=== PATIENT | male | born 2000 | race African-American/Black ===

== ENCOUNTER 2024-11-19 18:50 | Emergency (ER) | payer SELFPAY ==
--- OUTSIDE RECORDS SUMMARY | 2008-07-28 21:13 | XMS_ITS | Encounter Summary ---
Author Organization [facility] Address [address] [place] [address] Care Team Providers Care Spray Painting Machine Operator Name Role Phone Unavailable Primary Care Provider Unavailabl e Encounter Details Date Type Department Care Team (Late st Contact Info) Description 07/28/2008 9:13 PM EDT Hospital Encounter [facility] ONLY Lemuel Murillo MD [address] [place] [address] Social History Tobacco Use Types Packs/Day Years Used Date Smoking Tobacco: Never Assessed Sex and Gender Information Value Date Recorded Sex Assigned at Not on file Legal Sex Male 1:36 PM EDT Gender Identity Not on file Sexual Orientation Not on file documented as of this encounter Plan of Treatment Not on file documented as of this encounter Visit Diagnoses Not on filedocumented in this encounter
--- OUTSIDE RECORDS SUMMARY | 2008-08-17 15:36 | XMS_ITS | Encounter Summary ---
Author Organization [facility] Address [address] [place] [address] Care Team Providers Care Grading Supervisor Name Role Phone Unavailable Primary Care Provider Unavailabl e Encounter Details Date Type Department Care Team (Late st Contact Info) Description 08/17/2008 3:36 PM EDT Hospital Encounter [facility] ONLY Lemuel Murillo MD [address] [place] [address] Social History Tobacco Use Types Packs/Day Years [...]
--- OUTSIDE RECORDS SUMMARY | 2011-05-08 17:00 | XMS_ITS | Encounter Summary ---
Author Organization [facility] Address [address] [place] [address] Care Team Providers Care Pipe Insulator Helper Name Role Phone Unavailable Primary Care Provider Unavailabl e Encounter Details Date Type Department Care Team (Late st Contact Info) Description 05/08/2011 5:00 PM EDT Hospital Encounter [facility] ONLY Colby Beal MD [address] [place] [phone] Social History Tobacco Use Types Packs/Day Years [...]
--- NOTE | ~2024-11-19 | XR_ITS ---
CLINICAL HISTORY: trauma 2 view chest x-ray Comparison: None provided Findings: The lungs are clear. Normal size heart. No acute fracture. IMPRESSION: 1. No acute findings. This document has been electronically signed by: Cole Liriano MD on 11/19/2024 20:48:11
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
--- NOTE | ~2024-11-19 | XR_ITS ---
CLINICAL HISTORY: trauma 3 view right elbow Comparison: None provided Findings: No acute fractures or dislocations. No significant arthritic change or erosions. No joint effusion. No radiopaque foreign body. IMPRESSION: 1. No acute findings. This document has been electronically signed by: Cole Liriano MD on 11/19/2024 20:48:16
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
--- NOTE | ~2024-11-19 | XR_ITS ---
CLINICAL HISTORY: trauma 3 view right shoulder Comparison: None provided Findings: No fractures or dislocations. No significant arthritic change. No erosions. No radiopaque foreign body. IMPRESSION: 1. No acute findings This document has been electronically signed by: Cole Liriano MD on 11/19/2024 20:48:25
[2024-11-19 18:53] VITALS: BP 125/79; RESP 20; TEMP 37.3; O2SAT 99; BMI 22.4
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
[2024-11-19 19:46] VITALS: BP 112/72; BP 117/76; PULSE 67; PULSE 71; RESP 16; O2SAT 98
--- OUTSIDE RECORDS SUMMARY | 2024-11-19 19:52 | XMS_ITS | Clinical Summary ---
Author Organization [facility] it Address [address] [place] [address] Care Team Providers Care Button Maker Name Role Phone Unavailable Primary Care Provider Unavailabl e Social History Tobacco Use Types Packs/Day Years Used Date Smoking Tobacco: Never Assessed Sex and Gender Information Value Date Recorded Sex Assigned at Not on file Legal Sex Male 1:36 PM EDT Gender Identity Not on file Sexual Orientation Not on file Plan of Treatment Health Maintenance Due Date Last Done Comments HPV Vaccines (1 - Male 3-dos e series) 12/14/2015 Meningococcal B Vaccine (1 o f 2 - Standard) 2016 DTaP,Tdap,and Td Vaccines (1 - Tdap) 12/14/2019 Hepatitis B Vaccines (1 of 3 - 19+ 3-dose series) 12/14/2019 HIV Screening 09/26/2023 Hepatitis C Screening 09/26/2023 Social Influencers of Health Screening 09/26/2023 Depression Screening 02/25/2024 COVID-19 Vaccine ( - 2023-2 5 season) 2024 Influenza Vaccine (#1) 2024 HIB Vaccines Aged Out No longer eligi ble based on patient's age to complete this topic Hepatitis A Vaccines Aged Out No long er eligible based on patient's age to complete this topic IPV Vaccines Aged Out No longer eligi ble based on patient's age to complete this topic MMR Vaccines Aged Out No longer eligi ble based on patient's age to complete this topic Meningococcal ACWY Vaccine Aged Out N o longer eligible based on patient's age to complete this topic Pneumococcal Vaccine: Pediat rics (0 to 5 Years) and At-Risk Patients (6 to 49 Years) Aged Out No longer eligible b ased on patient's age to complete this topic RSV Immunization Patients Un noemi 20 months Aged Out No longer eligible b ased on patient's age to complete this topic Varicella Vaccines Aged Out No longer eligible based on patient's age to complete this topic
--- OUTSIDE RECORDS SUMMARY | 2024-11-19 19:52 | XMS_ITS | Patient Health Record ---
Author Organization Jeanie Junior MD [facility] Address [address] [place] [phone] Care Team Providers Care Raised Printer Name Role Phone JEANIE JUNIOR Primary Care Provider Reason For Referral No Information Medications Medication SIG (Take, Route, Fr equency, Duration) Notes Start Date End Date Status SEROquel 300 mg 2X day Active Benadryl Active ProAir HFA Active Tenex 2 mg 2x day Active Depakote 500 mg 2x day Active MiraLax Active Plan Of Treatment Pending Test Test Name Order Date ANKLE 2 VWS LEFT XR 04/07/2018 Insurance Providers Payer Name Payer Address Payer Phone Subscriber Number Group Number Insured Name Patient Relationship to Insured Coverage Start Date Coverage End Date [place] of [place] s [address] [place] [id number] Deuce Mancuso Self - patient is the insured Medical (General) History Medical History History ICD Code asthma Surgical History Surgery Date(Month/Year) Hospitalization History Reason Date(Month/Year) yes but not sure why
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
[2024-11-19] MEDS: Lidocaine HCl 1 % MPF 5 ML VIAL SUBCUT (22:15)
[2024-11-19 22:22] LABS: MANUAL DIFF FLAG NO
[2024-11-19] MEDS: Diphth,Pertus(ACell),Tet Adult 0.5 ML SYRINGE IM (22:22)
[2024-11-19 22:24] LABS: Hematocrit 37.9 % (42.0-52.0); Hemoglobin 13.6 g/dl (14.0-18.0); Imm Gran Abs Auto 0.05 X10*3/uL (0.00-0.03); Imm Gran Pct Auto 0.4 % (0.0-0.4); Lymphocytes Absolute Auto 1.8 X10*3/uL (1.2-4.9); Mean Corpuscular HGB Conc 35.9 g/dl (31.0-36.0); Mean Corpuscular Hemoglobin 32.6 pg (27.0-33.0); Mean Corpuscular Volume 90.9 fL (80.0-98.0); NRBC Abs Auto 0.000 X10*3/uL (0.0-0.012); NRBC Pct Auto 0.0 /100WBC (0.0-0.2); Platelet Count 208 X10*3/uL (160-400); Red Blood Count 4.17 X10*6/uL (4.60-5.80); White Blood Count 11.3 X10*3/uL (4.8-10.8)
[2024-11-19 22:41] LABS: Anion Gap 12 (12-20); Blood Urea Nitrogen 11 mg/dL (9-16); Calcium 9.2 mg/dL (8.4-10.2); Carbon Dioxide 26 mmol/L (22-29); Chloride 108 mmol/L (96-108); Creatinine Clr Calc Pharmacy 162.7; Estimated Glomerular Filt Rate > 60; Potassium 3.7 mmol/L (3.3-5.1); Sodium 142 mmol/L (135-145)
[2024-11-20 00:25] VITALS: BP 123/75; PULSE 75; RESP 18; TEMP 36.7; O2SAT 98
== END 2024-11-20 00:27 | disposition home or self-care (01) ==
PROVIDERS: Emergency Provider Emergency Medicine Emergency Medical Services
DX: S01.01XA Laceration without foreign body of scalp, initial encounter (principal); S40.211A Abrasion of right shoulder, initial encounter; F10.90 Alcohol use, unspecified, uncomplicated; R51.9 Headache, unspecified; R07.89 Other chest pain; M79.601 Pain in right arm; R11.0 Nausea; F12.90 Cannabis use, unspecified, uncomplicated; Y93.55 Activity, bike riding; Y92.9 Unspecified place or not applicable; Y99.9 Unspecified external cause status; Z51.81 Encounter for therapeutic drug level monitoring; Z79.899 Other long term (current) drug therapy; Z23 Encounter for immunization
CPT/HCPCS: 12002; 36415; 70450; 71046; 72125; 73030; 73080; 80048; 80307; 85025; 90471; 90715; 96360; 99284; J2003

== ENCOUNTER → 2024-11-19 18:56 | Outpatient (BNV) | payer SELFPAY | PROVIDERS: Visit Provider Radiology Diagnostic Radiology | DX: M54.2 Cervicalgia (principal); S09.90XA Unspecified injury of head, initial encounter; F10.10 Alcohol abuse, uncomplicated; M25.511 Pain in right shoulder; M25.521 Pain in right elbow | CPT/HCPCS: 70450; 71046; 72125; 73030; 73080 ==

== ENCOUNTER 2024-12-13 01:40 | Emergency (ER) | payer SELFPAY ==
[2024-12-13 01:44] VITALS: BP 119/58; PULSE 77; RESP 20; TEMP 36.2; O2SAT 96; BMI 23.1
--- OUTSIDE RECORDS SUMMARY | 2024-12-13 02:03 | XMS_ITS | Patient Health Record ---
Author Organization Jeanie Junior MD [facility] Address [address] [place] [id number] Care Team Providers Care Escort Service Attendant Name Role Phone JEANIE JUNIOR Primary Care [...] s [address] [place] [phone] [id number] Deuce Mancuso Self - patient is the insured Medical (General) History Medical History History ICD Code asthma Surgical History Surgery Date(Month/Year) Hospitalization History Reason Date(Month/Year) yes but not sure why
[2024-12-13 02:58] VITALS: BP 106/55; PULSE 72; RESP 14; TEMP 36.4; O2SAT 96
--- NOTE | 2024-12-13 03:17 | ED_ITS ---
HPI - Skin/Abscess/Foreign Bdy General Chief complaint: Skin/Abscess/Foreign Body Stated complaint: feet blisters Time Seen by Provider: 12/13/24 03:00 Source: patient Mode of arrival: ambulatory Limitations: no limitations History of Present Illness ED Provider: Dr. Monika Rose HPI narrative: 24-year-old male with history housing insecurity presenting with bilateral foot blisters on the tops of his toes and bottoms of his feet. States he has been walking around a lot and has been wearing wet socks. He is currently has on dry socks though. He is homeless. Denies fever. No redness of the legs. Denies other illness or injury. Related Data Allergies Allergy/AdvReac Type Severity Reaction Status Date / Time No Known Allergies Allergy Verified 12/13/24 01:45 Review of Systems Review of Systems: as per HPI, full review of systems performed and negative but for the above mentioned pertinent positives and negatives. [facility] Social History Social History Alcohol intake: never Smoked in Last 30 Days: No Use of substances other than those prescribed or required for medical reasons: No Substance Use Type: Marijuana Advance Directives: No Advance Directives Information Provided: No Physical Exam Exam: Exam: GENERAL: Well-Appearing, unkempt. SKIN: Normal skin color for ethnicity, warm, dry, no rashes noted. HEENT: Normocephalic, atraumatic, no stridor, EOMI. NECK: Full ROM. CHEST: Heart regular rate and rhythm, symmetric chest rise and fall. PULMONARY: No labored breathing. MUSCULOSKELETAL: Normal tone, full range of motion, no deformities, no peripheral edema. NEURO: Alert and oriented x3, no focal neurologic deficits, ambulates with a steady gait. PSYCHIATRIC: Flat affect, fluid speech, poor eye contact and uncooperative. Vital Signs: Vital Signs: Last Vital Signs Temp 97.6 F 12/13/24 02:58 Pulse 72 12/13/24 02:58 Resp 14 12/13/24 02:58 BP 106/55 L 12/13/24 02:58 Pulse Ox 96 12/13/24 02:58 O2 Del Method Room Air 12/13/24 02:58 BMI result Body Mass Index 23.1 Medical Decision Making Medical Decision Making MDM Narrative: Patient presents today with chief complaint of possible infection. Differential diagnosis includes abscess, cellulitis, deep space infection such as fasciitis, bone infection, vascular abnormality, among many others. Findings are not consistent with fasciitis specifically with no crepitus, pain out of proportion, hemodynamic instability, poor historical factors. Clinically the patient has what appears to be trench foot associated with walking around in wet sneakers. Unfortunately, patient did not complete treatment and left prior to my undressing his feet fully and without receiving any type of ointment or dressing. Differential Diagnosis Differential Diagnoses: The differential diagnosis associated with the presentation includes (as above) Social Determinants Patient?s care significantly limited by Social Determinants of Health including: Inadequate housing and Other Social Determinant of Health Discharge Plan Discharge Clinical Impression: Blister of foot without infection, Housing insecurity Patient Disposition: Left W/O Completing Treatment
--- NOTE | 2024-12-13 04:14 | PC.NURSE ---
pt noted to not be in stretcher at this time, MD aware, per registration pt walked out door.
== END 2024-12-13 04:27 | disposition left against medical advice (07) ==
PROVIDERS: Emergency Provider Emergency Medicine
DX: S90.821A Blister (nonthermal), right foot, initial encounter (principal); S90.822A Blister (nonthermal), left foot, initial encounter; Y93.01 Activity, walking, marching and hiking; Y93.9 Activity, unspecified; Y92.9 Unspecified place or not applicable; Z59.00 Homelessness unspecified; Z53.29 Procedure and treatment not carried out because of patient's decision for other reasons
CPT/HCPCS: 99283; 99284

== ENCOUNTER 2024-12-13 04:48 | Emergency (ER) | payer SELFPAY ==
--- OUTSIDE RECORDS SUMMARY | 2008-07-28 21:13 | XMS_ITS | Encounter Summary ---
Author Organization [facility] Address [address] [place] [address] Care Team Providers Care Electric Cutter Operator Name Role Phone Unavailable Primary Care Provider Unavailabl e Encounter Details Date Type Department Care Team (Late st Contact Info) Description 07/28/2008 9:13 PM EDT Hospital Encounter [facility] ONLY Lemuel Murillo MD [address] [place] [address] Social History Tobacco Use Types Packs/Day Years Used Date Smoking Tobacco: Never Smokeless Tobacco: Never Alcohol Use Standard Drinks/Week Comments Yes 0 (1 standard drink = 0.6 oz pur e alcohol) Sex and Gender Information Value Date Recorded Sex Assigned at Not on file Legal Sex Male 1:36 PM EDT Gender Identity Not on file Sexual Orientation Not on file documented as of this encounter Functional Status * Calculated C-SSRS Risk Score (Lifetime/Recent) Answer Date of Assessment Author No Risk Indicated 11/30/2024 1:18 AM EDT Bj Tomas RN * [place] Suicide Severity Rating Scale (Screener/Recent Self-Report) Question Answer Date of Assessment Author 1. Wish to be (Past 1 Month) No 025 1:18 AM EMMETTT Bj Tomas RN 2. Non-Specific Active Suici zaid Thoughts (Past 1 Month) No 11/30/2024 1:18 AM EDT Mauricio Tomas RN 6. Suicidal Behavior (Lifetime) No 1:18 AM EMMETTT Bj Tomas RN documented as of this encounter Plan of Treatment Not on file documented as of this encounter Visit Diagnoses Not on filedocumented in this encounter
--- OUTSIDE RECORDS SUMMARY | 2008-08-17 15:36 | XMS_ITS | Encounter Summary ---
Author Organization [facility] Address [address] [place] [address] Care Team Providers Care Spool Sorter Name Role Phone Unavailable Primary Care Provider Unavailabl e Encounter Details Date Type Department Care Team (Late st Contact Info) Description 08/17/2008 3:36 PM EDT Hospital Encounter [facility] ONLY Lemuel Murillo MD [address] [place] [phone] Social History Tobacco Use Types Packs/Day Years [...] 1:18 AM EDT Bj Tomas RN * [place] Suicide Severity Rating Scale (Screener/Recent Self-Report) Question [...]
--- OUTSIDE RECORDS SUMMARY | 2011-05-08 17:00 | XMS_ITS | Encounter Summary ---
Author Organization [facility] Address [address] [place] [address] Care Team Providers Care Label Designer Name Role Phone Unavailable Primary Care Provider Unavailabl e Encounter Details Date Type Department Care Team (Late st Contact Info) Description 05/08/2011 5:00 PM EDT Hospital Encounter [facility] ONLY Colby Beal MD [address] [place] [address] Social History Tobacco Use Types Packs/Day Years [...] 1:18 AM EDT Bj Tomas RN * [place] Suicide Severity Rating Scale (Screener/Recent Self-Report) Question Answer Date of Assessment Author 1. Wish to be (Past 1 Month) No 025 1:18 AM EDT Bj Tomas RN 2. Non-Specific Active Suici zaid Thoughts (Past 1 Month) No 11/30/2024 1:18 AM EDT Mauricio Tomas RN 6. Suicidal Behavior (Lifetime) No 1:18 AM EDT Bj Tomas RN documented as of this encounter Plan of Treatment Not on file documented as of this encounter Visit Diagnoses Not on filedocumented in this encounter
[2024-12-13 04:49] VITALS: BP 106/55; PULSE 58; RESP 20; TEMP 36.4; O2SAT 97; BMI 23.1
--- NOTE | 2024-12-13 05:02 | ED_ITS ---
HPI - Skin/Abscess/Foreign Bdy General Chief complaint: Skin/Abscess/Foreign Body Stated complaint: feet blisters Time Seen by Provider: 12/13/24 04:53 History of Present Illness HPI narrative: 24-year-old male with history housing insecurity re-presenting (after leaving without treatment completion approximately 30 minutes ago) with bilateral foot blisters on the tops of his toes and bottoms of his bilateral feet. States he has been walking around a lot and has been wearing wet socks. He is currently has on dry socks though. He was seen at [facility] days ago and given some gauze to wrap his feet but admits that he ran out of gauze and does not know how to wrap them. He is homeless. Denies fever. No redness of the legs. Denies other illness or injury. Related Data Previous Rx's ?Medication ?Instructions ?Recorded potassium [id number] 1 ea topical DAILY foot sweating 12/13/24 topical powder (Bromi-Talc topical #105 grams powder) Allergies Allergy/AdvReac Type Severity Reaction Status Date / Time No Known Allergies Allergy Verified 12/13/24 04:51 Review of Systems Review of Systems: As per HPI, full review of systems performed and negative but for the above mentioned pertinent positives and negatives. [facility] Social History Social History Alcohol intake: never Substance Use Type: Marijuana Physical Exam Exam: Exam: GENERAL: Unkempt, no acute distress. SKIN: Normal skin color for ethnicity, warm, dry, bilateral feet with multiple blisters on the lateral aspects of the great toes and the metatarsals of the feet, no crepitus, no other rash or erythema, onychomycosis in both feet. HEENT: Normocephalic, atraumatic, no stridor, posterior oropharynx nonerythematous, dentition intact, EOMI. NECK: Soft, supple, full ROM, midline structures nontender, no step-offs, no deformities, no lymphadenopathy. CHEST: Heart regular rate and rhythm, no murmurs, symmetric chest rise and fall. PULMONARY: Clear to auscultation bilaterally, no labored breathing, no wheezes/rhales/ rhonchi. ABDOMINAL: Soft, nondistended, nontender, positive bowel sounds in all quadrants. : Deferred. MUSCULOSKELETAL: Normal tone, full range of motion, no deformities, no peripheral edema. NEURO: Alert and oriented x3, CN II through XII intact, equal strength and sensation bilateral upper and lower extremities, no focal neurologic deficits. PSYCHIATRIC: Flat affect, poor eye contact, withdrawn Vital Signs: Vital Signs: Last Vital Signs Temp 97.5 F 12/13/24 04:49 Pulse 58 12/13/24 04:49 Resp 20 12/13/24 04:49 BP 106/55 L 12/13/24 04:49 Pulse Ox 97 12/13/24 04:49 O2 Del Method Room Air 12/13/24 04:49 BMI result Body Mass Index 23.1 Medical Decision Making Medical Decision Making MDM Narrative: Patient presenting again after leaving earlier tonight with blisters on his feet from walking in wet shoes. No superinfection noted. Recommended airing out his feet as much as possible, dry dressings when he can not take his shoes off and staying off of his feet if possible. He is homeless and is having difficulty finding housing. We will provide him with snf information and [place]. Given gabapentin and Motrin for pain. Discharged in stable condition. Differential Diagnosis Differential Diagnoses: The differential diagnosis associated with the presentation includes (Trench foot, blisters, cellulitis, housing insecurity, substance use disorder) Admission/Observation Consideration of admission/observation: Escalation of care including admission/observation considered External Record Review External record reviewed: Inpatient record Social Determinants Patient?s care significantly limited by Social Determinants of Health including: Inadequate housing and Other Social Determinant of Health Discharge Plan Discharge Clinical Impression: Blister of foot without infection, Housing insecurity Patient Disposition: Home, Self-Care Instructions: Blister (ED) Additional Instructions: Keep your feet clean and dry. Take off your shoes as much as possible to air them out. Try to stay off of your feet as much as possible. Return to the hospital if you notice fevers greater than 100?, redness that tracks up your legs or if you start to have pus drainage from your wounds. You were given a list of homeless shelters in the area. You can return to the emergency department at any time and for any reason. Prescriptions: New Bromi-Talc Powder 1 ea topical DAILY Qty: 105 0RF Print Language: Ukrainian
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
[2024-12-13 05:33] VITALS: BP 106/55; PULSE 58; RESP 20; TEMP 36.4; O2SAT 97
== END 2024-12-13 05:44 | disposition home or self-care (01) ==
PROVIDERS: Emergency Provider Emergency Medicine
DX: S90.822A Blister (nonthermal), left foot, initial encounter (principal); S90.821A Blister (nonthermal), right foot, initial encounter; Y93.01 Activity, walking, marching and hiking; Y93.9 Activity, unspecified; Y92.9 Unspecified place or not applicable; Z59.00 Homelessness unspecified
CPT/HCPCS: 99283